=== PATIENT | female | born 1980 | race Caucasian/White ===

== ENCOUNTER 2021-12-27 16:53 | Emergency (ER) | payer OTHER ==
[~2021-12-27] VITALS: Ht 167.7 cm; Wt 131.5 kg
[~2021-12-27 16:53] MED LIST: CLIN-81 PO; HYDR-3062 PO; HYDR-3729 PO; IBP800T PO; LACT1CAP39 PO; SULF-222 PO
--- NOTE | 2021-12-27 18:07 | ED Upper Extremity ---
General Chief Complaint: Upper Extremity Stated Complaint: R WRIST INJ Source: patient Exam Limitations: no limitations History of Present Illness Date Seen by Provider: Dec 27, 2021 Time Seen by Provider: 18:05 Initial Comments Patient is a 41-year-old female presents ED with right wrist pain. Patient states 1 hour ago she was at work when she fell and slipped on the floor landing on extended out right hand. She had immediate pain and heard a pop. Swelling noted on the dorsum side of the wrist without obvious deformity. Pain with any movement of the right wrist. She immediately applied ice and came to the ER. No history of previous fracture. Denies hitting her head, loss consciousness, nausea, vomiting, diarrhea, fever, chills Allergies and Home Medications Allergies Coded Allergies: hydrocodone (Verified Allergy, Severe, ANAPHYLAXIS, 05/22/14) vancomycin (Verified Allergy, Severe, ANAPHYLAXIS, 05/23/14) codeine (Verified Allergy, Unknown, 12/23/13) erythromycin base (Verified Allergy, Unknown, 12/23/13) Patient Home Medication List Home Medication List Reviewed: Yes Ibuprofen (Ibuprofen) 600 Mg Tablet, 600 MG PO Q6H Prescribed by: DUY GONZALEZ on 12/27/211899 Tramadol HCl (Tramadol HCl) 50 Mg Tablet, 50 MG PO Q4H PRN for PAIN-MODERATE (5- 7) Prescribed by: DUY GONZALEZ on 12/27/211899 Review of Systems Constitutional: No chills, No diaphoresis, No malaise, No weakness EENTM: No hearing loss, No blurred vision, No double vision Respiratory: No cough, No dyspnea on exertion, No orthopnea, No short of breath Cardiovascular: No chest pain Gastrointestinal: No abdominal pain Musculoskeletal: No back pain; joint pain, joint swelling, muscle pain, muscle stiffness Skin: No change in color, No change in hair/nails All Other Systems Reviewed Negative Unless Noted: Yes Past Ewaiqgn-Qjmunl-Sbapxv Hx Patient Social History Tobacco type used: Cigarettes Smoking Status: Current Everyday Smoker Smokeless Tobacco Frequency: Never a User Use of E-Cig and/or Vaping dev: No Use of E-Cig and/or Vaping Brody: Never a User Substance use?: Yes Substance type: Marijuana Substance frequency: Once in a while Alcohol Use?: No Pt feels they are or have been: No Immunizations Up To Date Tetanus Booster (TDap): Less than 5yrs PED Vaccines UTD: Yes Seasonal Allergies Seasonal Allergies: No Past Medical History Headaches /Migraines Reproductive Disorders: No Female Reproductive Disorders: Endometriosis [employer]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 0.0oz. [id number]; BMI Method:Stated General Appearance: WD/WN, no apparent distress HEENT: PERRL/EOMI, normal ENT inspection, TMs normal, pharynx normal Neck: non-tender, full range of motion, supple, normal inspection Cardiovascular: regular rate, rhythm, no edema, no gallop, no JVD Respiratory: chest non-tender, lungs clear, normal breath sounds, no respiratory distress, no accessory muscle use Gastrointestinal: normal bowel sounds, non tender, soft, no organomegaly Wrist: Yes bone tenderness (Distal radius and ulna tenderness), Yes pain, Yes soft tissue tenderness Hand: normal inspection, non-tender, normal ROM, Right Neurologic/Psychiatric: director part II-XII nml as tested, no motor/sensory deficits, alert, normal mood/affect, oriented x 3 Skin: normal color, warm/dry Progress/Results/Core Measures Results/Orders My Orders Orders - GISSELL SHI Tramadol Tablet (Ultram Tablet) (12/27/21 18:04) Wrist, Right, 3 Views Or More (12/27/21 18:16) Vital Signs/I&O 12/27/21 18:01 Temp 36.0 Pulse 94 Resp 18 B/P (MAP) 134/76 (95) O2 Delivery Room Air Departure Communication (PCP) X-ray of the right wrist was negative for fracture. She has no snuffbox tenderness. Does have notable swelling. Patient was placed in a Colles' wrist splint for comfort. Ice 3-4 times a day for the next 3 to 4 days. Elevate. Will discharge with anti-inflammatories and breakthrough pain medication to [facility]. Orthopedic follow-up in 7 to 10 days for reevaluation. Recommend limited use until further evaluated or until pain resolves with appropriate range of motion. If continued pain recommend keeping in splint until seen by orthopedic. Impression Primary Impression: Wrist sprain Disposition: HOME, SELF-CARE Condition: Stable Departure-Patient Inst. Decision time for Depature: 18:58 Referrals: [facility] [place] (PCP/Family) Primary Care Physician DILLON ZHAO MD Patient Instructions: Wrist Sprain ED Scripts Tramadol HCl (Tramadol HCl) 50 Mg Tablet 50 MG PO Q4H PRN for PAIN-MODERATE (5-7), #10 TAB Prov: GISSELL SHI 12/27/21 Ibuprofen (Ibuprofen) 600 Mg Tablet 600 MG PO Q6H for PAIN, #14 TAB 0 Refills Prov: GISSELL SHI 12/27/21 Work/School Note: Work Release Form Date Seen in the Emergency Department: Dec 27, 2021 Return to Work: Dec 29, 2021 GISSELL SHI Dec 27, 2021 18:07
--- NOTE | 2021-12-27 18:41 | Diagnostic Imaging Report ---
INDICATION: Right wrist pain post injury AP, oblique, lateral views of the right wrist are obtained. No fracture or acute bony abnormality is seen. Joint spaces are unremarkable. IMPRESSION: Negative right wrist. Dictated by: Dictated on workstation # [id number]
[2021-12-27] MEDS ORDERED: TRM50T PO (19:00)
[2021-12-27] MEDS ORDERED: IBUP-1773 PO (19:00)
[2021-12-27 19:15] VITALS: BP 147/92
== END 2021-12-27 17:15 | disposition home or self-care (01) ==
LOC: EDUNIT# 16:53 → ER 16:55
DX: S63.501A Unspecified sprain of right wrist, initial encounter (principal); F17.210 Nicotine dependence, cigarettes, uncomplicated; Z28.310 Unvaccinated for COVID-19; W01.0XXA Fall on same level from slipping, tripping and stumbling without subsequent striking against object, initial encounter; X50.1XXA Overexertion from prolonged static or awkward postures, initial encounter; Y92.59 Other trade areas as the place of occurrence of the external cause; Y99.0 Civilian activity done for income or pay
CPT/HCPCS: 73110